=== PATIENT | male | born 1950 | race Caucasian/White ===

== ENCOUNTER 2017-12-27 15:30 | Inpatient (IN) | payer MEDICARE, OTHER ==
[~2017-12-27] VITALS: Ht 175.3 cm; Wt 88.5 kg
[2017-12-27 15:38] VITALS: BP 170/71
[2017-12-27] MEDS ORDERED: CARVEDILOL12.5 MG PO (15:44)
[2017-12-27] MEDS ORDERED: LIPITOR 20 MG T20 M1 PO (15:45)
[2017-12-27] MEDS ORDERED: COZAAR100 MG PO (15:45)
[2017-12-27] MEDS ORDERED: XANAX1 MG PO (15:45)
[2017-12-27 15:51] LABS: ABSOLUTE EOSINOPHILS 0.1 thou/uL (0.0-0.7); ABSOLUTE LYMPHOCYTES 1.7 thou/uL (0.8-5.3); ABSOLUTE MONOCYTES 0.5 thou/uL (0.0-1.2); ABSOLUTE NEUTROPHILS 6.2 thou/uL (1.6-8.1); BASOPHILS 0.3 %; EOSINOPHILS 0.7 %; HEMATOCRIT 39.2 % (42.0-52.0); HEMOGLOBIN 13.4 gm/dL (14.0-18.0); MCH 34.4 pg (26.0-34.0); MCHC 34.3 g/dL (28.0-37.0); MCV 100.4 fL (80.0-100.0); MONOCYTES 5.8 %; MPV 8.6 fl. (7.2-11.1); NUCLEATED RBCS 0 /100WBC; PLATELET COUNT* 130 thou/uL (150-400); POLYS 73.2 %; WBC 8.5 thou/uL (4.0-11.0)
[2017-12-27 15:59] LABS: CALCIUM 9.3 mg/dL (8.5-10.1); CREATININE 0.9 mg/dL (0.6-1.3); POTASSIUM 4.2 mmol/L (3.5-5.1)
[2017-12-27 16:01] LABS: URINE BLOOD NEGATIVE (Negative); URINE CLARITY CLEAR; URINE COLOR YELLOW; URINE GLUCOSE-RANDOM NEGATIVE (Negative); URINE LEUKOCYTES-REFLEX NEGATIVE (Negative); URINE NITRITE-REFLEX NEGATIVE (Negative); URINE PROTEIN NEGATIVE (Negative); URINE SPECIFIC GRAVITY >= 1.030 (1.005-1.030); URINE UROBILINOGEN 0.2 E.U./dl (0.2-1.0)
[2017-12-27 16:03] LABS: ALBUMIN 4.1 g/dL (3.4-5.0); TOTAL PROTEIN 7.5 g/dL (6.4-8.2)
[2017-12-27 16:11] LABS: ICTOTEST (BILI CONFIRMATORY) Negative (Negative); URINE BILIRUBIN 1+ (Negative); URINE KETONES 3+ (Negative)
[2017-12-27 18:37] VITALS: BP 130/67
[2017-12-27 19:34] LABS: APTT 29.2 Seconds (25.0-31.3); PROTIME 10.1 Seconds (9.20-11.50)
[2017-12-27 23:30] VITALS: BP 127/67
--- NOTE | 2017-12-28 01:37 | NUR ---
0130 CONTACTED PHYSICIAN FOR CLARIFICATION ON LEVEL OF CARE. DR. LOYA STATED THAT PATIENT MAY REMAIN MED/SURG STATUS.
[2017-12-28 03:41] VITALS: BP 110/56
[2017-12-28 03:55] LABS: ABSOLUTE LYMPHOCYTES 0.9 thou/uL (0.8-5.3); ABSOLUTE MONOCYTES 0.9 thou/uL (0.0-1.2); ABSOLUTE NEUTROPHILS 8.7 thou/uL (1.6-8.1); HEMOGLOBIN 13.1 gm/dL (14.0-18.0); LYMPHOCYTES 8.9 %; MCH 34.3 pg (26.0-34.0); MCHC 33.6 g/dL (28.0-37.0); MCV 102.1 fL (80.0-100.0); MONOCYTES 8.4 %; NUCLEATED RBCS 0 /100WBC; PLATELET COUNT* 132 thou/uL (150-400); POLYS 82.7 %; RBC 3.82 mil/uL (4.50-6.00); RDW-CV 13.3 % (10.5-14.5); WBC 10.5 thou/uL (4.0-11.0)
[2017-12-28 04:21] LABS: CALCIUM 8.2 mg/dL (8.5-10.1)
[2017-12-28 04:23] LABS: POTASSIUM 5.2 mmol/L (3.5-5.1)
--- NOTE | 2017-12-28 05:26 | NUR ---
PATIENT ARRIVED ON UNIT AT 2300. ASSISTED TO UNIT BED, AT BEDSIDE. ORIENTED TO UNIT, BED CONTROLS AND CALL LIGHT. ADMISSION COMPLETE CHARTED. FALL AGREEMENT SIGNED. VITAL SIGNS STABLE ON ROOM AIR. MAINTAINS BEDREST UNTIL AM. IV PATENT IN THE LEFT AC INFUSING AT 100 ML/HR. PAIN MANAGED WITH IV PAIN MEDICATION PER ORDERS. DENIES NAUSEA. RODRIGUEZ PATENT AND DRAINING LIGHT YELLOW URINE. REPOSITIONING SELF IN BED WITH SOME ASSISTANCE AT TIMES. DRESSING TO SURGICAL SITE C/D/I. BAND-AID OVER LAP SITES X3. HOURLY ROUNDING COMPLETE. FALL PRECAUTIONS IN PLACE. BED IN LOW POSITION. BED ALARM IN PLACE. CALL LIGHT WITHIN REACH. NURSING WILL CONTINUE TO MONITOR.
[2017-12-28 07:45] VITALS: BP 100/55
--- NOTE | 2017-12-28 10:09 | NUR ---
INITIAL ASSESSMENT: Received referrals to evaluate pt for d/c planning needs. Reviewed chart and spoke with nurse, pt and spouse. Pt is alert and oriented. Pt lives in house with spouse and was independent with ADL's prior to admission to the hospital. Pt remains active in the community and is still driving. Pt uses no DME. Pt had home health nursing years ago when he needed IVAB at home. Pt said he used [facility]. Pt plans on returning home on d/c from hospital. Will remain available to assist as needed.
--- NOTE | 2017-12-28 10:12 | EKG ---
[place] [address] ELECTROCARDIOGRAM REPORT Name: YESI FLORES Room: [address] IN [facility]#: [id number] Admission: 12/27/17 Attend Phys: Fany Cummins MD Discharge: Date of : 46 Report #: [id number] THIS REPORT FOR: //name// [facility] Test Date: 2017-12-27 Test Time: 19:17:54 Pat Name: YESI FLORES Department: Room: Gender: Bsa Officer: [facility] : 1950 Requested By: Kelly Allen Order Number: [id number] Reading : Jonathan Beyer Measurements Intervals [place] Rate: 58 P: 24 GA: 166 QRS: 15 QRSD: 93 T: 21 QT: 449 QTc: 442 Interpretive Statements Sinus rhythm No previous ECG available for comparison Electronically Signed On 12-28-2017 10:11:54 CDT by Jonathan Beyer [email or web address] <ELECTRONICALLY SIGNED> By: Laurent Beyer MD, [facility] 12/28/17 1011 [id number] Laurent Beyer MD, FACC /EPI
[2017-12-28 10:16] LABS: CALCIUM 7.7 mg/dL (8.5-10.1); CREATININE 1.1 mg/dL (0.6-1.3); POTASSIUM 4.4 mmol/L (3.5-5.1)
[2017-12-28 15:33] VITALS: BP 103/47
--- NOTE | 2017-12-28 18:43 | NUR ---
PATIENT HAS BEEN A/O X 4 THIS SHIFT. MEDICATED FOR ABDOMINAL PAIN WITH SCHEDULED TORADOL AND TRAMADOL WITH RELIEF. DRESSINGS INTACT TO MIDLINE ABD. UP TO CHAIR FOR MOST OF SHIFT. AMBULATING IN HALLS X 2 TODAY. RODRIGUEZ CATHETER REMOVED, BLADDER SCANNED AND SHOWING 182. POTASSIUM ELEVATED ON LABS THIS AM, BOLUS GIVEN AND REPEAT POTASSIUM WNL. PATIENT TOLERATING DIET WITHOUT ANY NAUSEA. FAMILY AT BEDSIDE THIS SHIFT. HOURLY ROUNDING COMPLETED. CALL LIGHT WITHIN REACH. WILL CONTINUE WITH PLAN OF CARE.
[2017-12-28 21:20] VITALS: BP 99/68
[2017-12-29] VITALS: BP 104/59
--- NOTE | 2017-12-29 00:40 | NUR ---
ASSESSMENT DOCUMENTED. MEDS GIVEN PER E-MAR. IV PATENT. PT STATED PAIN WAS ABOUT 2/10. PAIN MEDS GIVEN PER E-MAR. DRESSING ON ABDOMEN HAS MODERATE AMOUNT DRIED BLOOD UNDER IT. PT REFUSED TRAMADOL FOR THIS NURSE. PT STILL HAS NOT VOIDED, BLADDER SCANNED READING 435. INFORMED ONCOMING NURSE. REPORT GIVEN TO CLARISSE SMITH.
[2017-12-29 03:46] LABS: ABSOLUTE LYMPHOCYTES 1.4 thou/uL (0.8-5.3); ABSOLUTE MONOCYTES 0.8 thou/uL (0.0-1.2); ABSOLUTE NEUTROPHILS 3.8 thou/uL (1.6-8.1); BASOPHILS 0.3 %; EOSINOPHILS 0.7 %; HEMATOCRIT 30.2 % (42.0-52.0); MCH 34.4 pg (26.0-34.0); MCHC 34.7 g/dL (28.0-37.0); MCV 99.1 fL (80.0-100.0); MONOCYTES 12.9 %; MPV 9.1 fl. (7.2-11.1); NUCLEATED RBCS 0 /100WBC; PLATELET COUNT* 93 thou/uL (150-400); POLYS 63.1 %; RBC 3.05 mil/uL (4.50-6.00); RDW-CV 13.1 % (10.5-14.5); WBC 6.1 thou/uL (4.0-11.0)
[2017-12-29 03:48] VITALS: BP 118/63
[2017-12-29 04:02] LABS: CALCIUM 7.5 mg/dL (8.5-10.1); CREATININE 1.2 mg/dL (0.6-1.3); POTASSIUM 3.5 mmol/L (3.5-5.1)
[2017-12-29 04:05] LABS: HEMOGLOBIN 10.5 gm/dL (14.0-18.0)
[2017-12-29 07:56] VITALS: BP 110/64
[2017-12-29] MEDS ORDERED: NEURONTIN 400400 M1 PO (09:56)
[2017-12-29] MEDS ORDERED: HYDROCODON-ACE1 EAC7 PO (09:56)
[2017-12-29] MEDS ORDERED: FLAGYL500 MG PO (09:56)
[2017-12-29] MEDS ORDERED: CIPRO500 MG PO (09:56)
[2017-12-29] MEDS ORDERED: FLOMAX0.4 MG PO (09:56)
[2017-12-29] MEDS ORDERED: TRAMADOL 50 MG50 MG PO (09:56)
--- NOTE | 2017-12-29 11:00 | NUR ---
RODRIGUEZ CATHETER CLAMPED AT THIS TIME FOR VOIDING TRIAL. FLOMAX GIVEN, SEE EMAR FOR DOCUMENTATION.
--- NOTE | 2017-12-29 14:56 | NUR ---
REMOVED RODRIGUEZ CATHETER AT THIS TIME PER ORDER FROM DR. WELCH. 300 ML DRAINED FROM CATHETER BAG. URINAL IN PATIENT'S BATHROOM FOR VOIDING. INSTRUCTED TO USE IT AND CALL NURSING WHEN DONE. NURSING WILL CONTINUE TO MONITOR.
--- NOTE | 2017-12-29 15:02 | NUR ---
PATIENT VOIDED 500 ML OF CLEAR YELLOW URINE USING URINAL AT THIS TIME. WILL NOTIFY PHYSICIAN AND DISCHARGE PATIENT. NURSING WILL CONTINUE TO MONITOR.
[2017-12-29 15:13] VITALS: BP 110/64
--- NOTE | 2017-12-29 15:41 | NUR ---
ASSUMED CARE OF PATIENT AFTER REPORT THIS MORNING. PATIENT AWAKE, ALERT, AND ORIENTED APPROPRIATELY. PHYSICAL ASSESSMENT COMPLETED AND CHARTED. VITAL SIGNS STABLE. OXYGEN SATURATION WITHIN NORMAL LIMITS ON ROOM AIR. GIVEN SCHEDULED MEDICATIONS, SEE EMAR FOR DOCUMENTATION. PATIENT TRANSFERS AND AMBULATES INDEPENDENTLY IN ROOM. SMALL AMOUNT OF SHADOWING NOTED TO SURGICAL DRESSING ON ABDOMEN. SURGEON AWARE. PATIENT WAS ABLE TO VOID AFTER DISCOTINUATION OF RODRIGUEZ CATHETER. SURGEON NOTIFIED AND GAVE ORDERS TO DISCHARGE PATIENT HOME. NURSING WILL CONTINUE TO MONITOR UNTIL DISCHARGE.
--- NOTE | 2017-12-29 16:23 | NUR ---
IV DISCONTINUED. DISCHARGE PAPERWORK COMPLETED AND SIGNED BY APPROPRIATE PARTIES, DISCUSSED WITH PATIENT, AND ON CHART. GIVEN PRESCRIPTION FOR FLAGYL, CIPRO, HYDROCODONE, TRAMADOL, FLOMAX, AND GABAPENTIN. PATIENT DISCHARGED AT THIS TIME. ESCORTED TO EXIT AMBULATORY BY THIS NURSE WITH SPOUSE.
--- NOTE | 2018-01-07 14:10 | OP ---
[facility] [address] [place] [address] OPERATIVE REPORT Name: YESI FLORES Room: [address]#: [id number] Admission: 12/27/17 Attend Phys: Fany Cummins MD Discharge: 12/29/17 Date of : 46 Report #: [id number] THIS REPORT FOR: //name// CC: Berto Le DO DATE OF SERVICE: 12/27/2017 PREOPERATIVE DIAGNOSES: 1. Colonic polyp. 2. Free air. 3. Abdominal pain. POSTOPERATIVE DIAGNOSES: 1. Colonic polyp. 2. Free air. 3. Abdominal pain. PROCEDURES: 1. Laparoscopic sigmoid colectomy with anastomosis. 2. Rigid proctosigmoidoscopy. 3. Angiographic evaluation of colonic flap. SURGEON: Kelly Allen M.D. BLADE BENDER FURNACE TENDER: Marcio Giordano DO ESTIMATED BLOOD LOSS: 10 mL COMPLICATIONS: None. ANESTHESIA: GET. FINDINGS: The tattooed segment in sigmoid colon with evidence of thermal burn, clip identified within the segment on specimen. DESCRIPTION OF PROCEDURE: Full informed consent obtained preoperatively after full discussion of risks, benefits, alternatives with the patient and his present, discussed rationale for procedure as well as options of watchful waiting versus proceeding to surgery. Discussed risk of bleeding, infection, reoperation, conversion to open, injury to surrounding structures including bowel, ureter, bladder, anastomotic leak, need for temporary or permanent stoma bag and catastrophic complications up to including cardiopulmonary failure and . They understood. He wished to proceed. He was taken to the operating [facility] [address] [place] [address] OPERATIVE REPORT Name: YESI FLORES Geovanna Room: [address] IN [facility].#: [id number] Admission: 12/27/17 Attend Phys: Fany Cummins MD Discharge: 12/29/17 Date of : 46 Report #: [id number] room, prepped and draped in usual standard sterile lithotomy fashion. A timeout began after anesthesia with all in agreement. We began with an HALS incision around the umbilicus, entered safely into the abdomen. A Gelport was placed. I inspected the abdomen. There was note of the tattooed segment in the mid sigmoid colon, evidence of a full-thickness thermal burn at this area. We placed a 12 in the right lower quadrant, two 5 in the suprapubic and left lower quadrant, elevated the sigmoid colon scored over the sacral promontory and entered in the presacral space, worked from medial to lateral, identified the ureter on the left side. It was confirmed by vermiculation and its movement. It was protected for the remainder of the case. I made a small window beneath my distal point transection near the convergence of the tinea. Two firings of the blue load Endo-GOSIA stapler were fired across it. Had good transection of the rectum. Next, I circumferentially dissected around the KASSANDRA pedicle. At its takeoff, it was taken high. After circumferentially dissected around it, a white load vascular stapler was fired across it with excellent ligation of the pedicle. Again, the ureter was identified and noted to be well protected well away from this. I took down remainder of the surrounding attachments. I scored along the white line of Toldt. I all the way up to the spleen. I took some of the sigmoid mesentery with a 5 mm EnSeal. I extracted the specimen out through the midline extraction site. I selected my point of transection of the left colon. This appeared to have excellent vascularity. After protecting the wounds, I made a small enterotomy in the bowel distal to this and a 28 EEA stapler with a spike attached was advanced into this left colon. I fired the blue load stapler across this to close the bowel. Benny was advanced in the middle of the antimesenteric border above the staple line. The spike was removed. It was replaced back in the abdomen after changing gloves. Next, we reinsufflated, I dilated up to 31 dilator and then advanced the 28 stapler up the rectum. We first leak tested the rectum, which was negative. The spike was opened through the anterior middle of the staple line. It was synchronized with the anvil and they were slowly closed until the green indicator on the EEA was in the middle of the indicator area. After waiting for a full minute, it was fired with a smooth transection, opened up and removed. I viewed the entirety of the staple line. It appeared to have excellent integrity. Next, I gave 3 mL of ICG green and watched under Firefly mode wall of the bowel now went from ingram to bright green. I inspected all portions of the anastomosis on the rectal side as well as the sigmoid side and along the corners of the staple line, all appeared to have excellent perfusion and integrity under Firefly as well as the visible eye. I compressed proximally and submerged the anastomosis beneath saline. Rigid proctosigmoidoscopy was performed and reviewed in the integrity of the staple line internally. It appeared to be complete as where the anastomotic donuts complete. I insufflated and had good rectal distention beneath the saline and there was no bubbling confirming negative intraoperative leak test. This was decompressed. I inspected the abdomen one more time. I made sure it was hemostatic, irrigated copiously, suctioned out clear fluid. We used 0 Vicryl and Jese-Neal to close the right lower quadrant port site, #1 PDS used to close the fascia. [place] [address] OPERATIVE REPORT Name: YESI FLORES Room: [address]#: [id number] Admission: 12/27/17 Attend Phys: Fany Cummins MD Discharge: 12/29/17 Date of : 46 Report #: [id number] needle, instrument counts correct at the end of the case. The patient tolerated well. INDICATIONS: This is a 67-year-old male undergoing colonoscopy due to a very large polyp. He had a resection of this polyp. Clips were placed appropriately over the polyp and heat used to transect the polyp, however. The patient represented to the ED with evidence of severe pain and requiring 100 mcg of fentanyl and CT evidence of bowel thickening at the site of the metallic clip as well as microperforation. Taking these findings into account, I discussed options with the patient. Given that, a polyp was at moderate risk for having an internal cancer. I believe colectomy was procedure of choice as opposed to repair of perforation directly. <ELECTRONICALLY SIGNED> By: Kelly Allen MD 01/07/18 1410 [id number] Allen MD /jag
== END 2017-12-29 16:24 | disposition home or self-care (01) | DRG 329 ==
LOC: M.SUR 15:30 → M.ERS 15:30 → M.SUR 18:37 → M.TBA-ER 19:23 → M.ORTHSURG 23:00
PROVIDERS: Physician Assistant; Surgery; ADMIT Internal Medicine
PROC: 0DTN4ZZ Resection of Sigmoid Colon, Percutaneous Endoscopic Approach (ICD-10-PCS; principal; 2017-12-27)
PROC: 0DBN8ZX Excision of Sigmoid Colon, Via Natural or Artificial Opening Endoscopic, Diagnostic (ICD-10-PCS; 2017-12-27)
DX: K63.1 Perforation of intestine (nontraumatic) (principal); K65.8 Other peritonitis; K63.5 Polyp of colon; I10 Essential (primary) hypertension; E78.00 Pure hypercholesterolemia, unspecified; E78.5 Hyperlipidemia, unspecified; E87.5 Hyperkalemia; R33.9 Retention of urine, unspecified; Z72.89 Other problems related to lifestyle; Z79.899 Other long term (current) drug therapy